=== PATIENT | male | born 1940 | race Caucasian/White ===

== ENCOUNTER 2020-09-30 14:34 | Inpatient (IN) ==
[2020-09-30] MEDS ORDERED: NS 0.9% 1000 ml BAG 1,000 ML IV ONE (17:23)
[2020-09-30] MEDS ORDERED: Lidocaine 1% MPF 5 ML VIAL INJ ONE ×2 (18:01→18:45)
[2020-09-30 18:13] LABS: ABS Eosinophils 0.1 10^3/ul (0-0.6); ABS Lymphocytes 2.4 10^3/ul (1.0-4.8); ABS Monocytes 0.6 10^3/ul (0-0.8); ABS Neutrophils 3.3 10^3/ul (1.5-7.7); Hematocrit 43 % (42-52); Hemoglobin 14.2 g/dL (14.0-18.0); Lymphocyte % 36.7 %; Mean Corpuscular HGB Conc 33 g/dL (31-36); Mean Corpuscular Hemoglobin 31 pg (27-31); Mean Corpuscular Volume 93 fL (80-94); Mean Platelet Volume 10.4 fL (7.4-10.4); Platelet Count 202 10^3/uL (150-450); Red Blood Count 4.59 10^6 /uL (4.18-5.48); Red Cell Distribution Width 13 % (10-15); White Blood Count 6.5 10^3/uL (3.5-10.8)
[2020-09-30 18:26] LABS: ALT 23 U/L (7-52); AST 19 U/L (13-39); Albumin/Globulin Ratio 1.7 (1-3); Alkaline Phosphatase 45 U/L (34-104); Anion Gap 6 mmol/L (2-11); BUN/Creatinine Ratio 16.7 (8-20); Blood Urea Nitrogen 21 mg/dL (6-24); C Reactive Protein < 1.00 mg/L (<8.01); CO2 Carbon Dioxide 24 mmol/L (22-32); Calcium 9.6 mg/dL (8.6-10.3); Chloride 109 mmol/L (101-111); EGFR African American 67.1 (>60); EGFR Non-African American 55.5 (>60); Globulin 2.4 g/dL (2-4); Glucose 107 mg/dL (70-100); Potassium 4.1 mmol/L (3.5-5.0); Sodium 139 mmol/L (135-145); Total Protein 6.4 g/dL (6.4-8.9); Troponin I 0.01 ng/mL (<0.03)
[2020-09-30] MEDS ORDERED: Lidocaine 1% VIAL 10 MG/ML VIAL ONE (18:47)
[2020-09-30 19:06] LABS: Acetaminophen < 15 mcg/mL; Alcohol, S < 10 mg/dL (<10); Salicylate < 2.50 mg/dL (<30)
[2020-09-30 19:21] LABS: TSH Ultra Thyroid Stim Horm 0.01 mcIU/mL (0.34-5.60)
[2020-09-30 19:22] LABS: Body Fluid Source Cerebral Spinal
[2020-09-30 19:35] LABS: CSF Glucose 73 mg/dL (40-70)
[2020-09-30 19:53] LABS: Activated Partial Thrombo Time 26.5 seconds (26.0-38.0); INR 1.21 (0.82-1.09)
[2020-09-30 20:14] LABS: Urine Benzodiazepine Screen None Detected (None Detect); Urine Cannabinoids Screen None Detected (None Detect); Urine Opiates Screen None Detected (None Detect)
[2020-09-30 20:16] LABS: Body Fluid Mono 9 %
[2020-09-30 20:17] LABS: Urine Appearance Clear; Urine Bilirubin Negative (Negative); Urine Blood Negative (Negative); Urine Color Straw; Urine Glucose Negative (Negative); Urine Ketones Negative (Negative); Urine Nitrite Negative (Negative); Urine Protein Negative (Negative); Urine Specific Gravity 1.008 (1.010-1.030); Urine Urobilinogen Negative (Negative)
[2020-09-30 21:55] LABS: Free T4 2.11 ng/dL (0.61-1.12)
[2020-09-30 21:59] LABS: Total T3 140 ng/dL (87-178)
[2020-09-30 23:03] LABS: Erythrocyte Sed Rate 2 mm/Hr (0-19)
[2020-09-30] MEDS: Enoxaparin 40 MG/0.4 ML SYR SUBCUT SCH (23:23)
[2020-10-01 03:02] LABS: Troponin I 0.03 ng/mL (<0.03)
[2020-10-01 03:37] LABS: HIV 4th Generation Nonreactive (Nonreactive)
[2020-10-01 06:09] LABS: Troponin I 0.03 ng/mL (<0.03)
[2020-10-01] MEDS ORDERED: Gadoteridol (CONTRAST) 279.3 MG/ML 10 ML IV ONE (10:19)
[2020-10-01] MEDS ORDERED: Gadoteridol (CONTRAST) 279.3 MG/ML 10 ML IV SCH (10:21)
[2020-10-01] MEDS: OMEPRAZOLE MAGNESIUM 10 MG PO SCH (11:41)
[2020-10-01 14:59] LABS: Thyroid Peroxidase Antibodies 0.56 IU/mL (<9)
[2020-10-01 15:03] LABS: Thyroid Peroxidase Antibodies 0.6 IU/mL (<9)
[2020-10-01 15:12] LABS: Thyroglobulin Antibody II 1.3 IU/mL (<4.0)
[2020-10-01 15:16] LABS: Thyroglobulin Antibody II 1.4 IU/mL (<4.0)
[2020-10-01] MEDS: Enoxaparin 40 MG/0.4 ML SYR SUBCUT SCH (21:07)
[2020-10-02] MEDS: OMEPRAZOLE MAGNESIUM 10 MG PO SCH (08:56)
[2020-10-02] MEDS: Enoxaparin 40 MG/0.4 ML SYR SUBCUT SCH (21:28)
[2020-10-03] MEDS: OMEPRAZOLE MAGNESIUM 10 MG PO SCH (08:01)
[2020-10-03 12:09] VITALS: BP 118/46
[2020-10-03 23:02] LABS: HSV 1 PCR, CSF Negative (Negative); HSV 2 PCR, CSF Negative (Negative)
[2020-10-03 23:29] LABS: Complement C3 114 mg/dL (75 - 175)
[2020-10-04 16:38] LABS: Albumin 3.3 g/dL (3.4-4.7); Gamma Globulin 0.8 g/dL (0.6-1.6); Total Protein(PEP) 6.3 g/dL (6.3 - 7.9)
== END 2020-10-03 16:00 | disposition home or self-care (01) | DRG 57 ==
LOC: ED 14:34 → MED 21:36
PROVIDERS: ADMIT Internal Medicine; ATTEND Internal Medicine